=== PATIENT | female | born 1980 | race Caucasian/White ===

== ENCOUNTER 2017-10-30 11:41 | Emergency (ER) | payer OTHER ==
[~2017-10-30] VITALS: Ht 167.6 cm; Wt 83.9 kg
[2017-10-30] MEDS ORDERED: ADIPEX-P37.5 MG (12:29)
[2017-10-30] MEDS ORDERED: SYNTHROID50 MCG (12:29)
[2017-10-30] MEDS ORDERED: BACTRIM DS TAB1 EACH PO (13:33)
== END 2017-10-30 13:38 | disposition home or self-care (01) ==
LOC: ER 11:41
DX: L03.311 Cellulitis of abdominal wall (principal)